=== PATIENT | female | born 1985 | race Caucasian/White ===

== ENCOUNTER 2019-07-17 11:01 | Outpatient (CLI) | payer MEDICAID ==
[~2019-07-17 11:01] MED LIST: ACET-2119 PO; ASPI-1265 PO; CARV3.12 PO; DIPH25CA52 PO; FERR325T32 PO; FLUO20CA39 PO; FURO-150 PO; IBUP-1984 PO; LACT1CAP57 PO; LEVO88TA7 PO; LISI-604 PO; NEOM14.216 TP; OMEP20CA15 PO; SPIR25TA PO; [UNRECOGNIZED DRUG - OTHER] PO
[2019-07-17 11:38] LABS: CLARITY,URINE SLIGHTLY CLOUDY (Clear); COLOR,URINE STRAW (Yellow); GLUCOSE, URINE NEGATIVE (Neg); KETONES,URINE NEGATIVE (Neg); LEUKOCYTE ESTERASE ,URINE NEGATIVE (Neg); NITRITES, URINE NEGATIVE (Neg); OCCULT BLOOD,URINE NEGATIVE (Neg); PROTEIN,URINE NEGATIVE (Neg); UROBILINOGEN,URINE 0.2 E.U/dL (0.2-1.0)
[2019-07-17 11:39] LABS: UA COLLECTION TYPE CLN CATCH MIDSTREAM
[2019-07-17 11:44] LABS: RBC,URINE NONE SEEN /HPF (0-2); SQUAMOUS EPITHELIAL CELL,UR MANY /LPF (FEW); WBC,URINE 0-4 /HPF (0-4)
[2019-07-17 11:45] LABS: BACTERIA,URINE 1+ /HPF (Neg); MUCUS STRANDS NONE SEEN /LPF (Neg)
[2019-07-17 12:17] LABS: BASOPHILS % (AUTO) 0.2 % (0-1); EOSINOPHILS # (AUTO) 0.1 X10'3 (0-0.9); EOSINOPHILS % (AUTO) 1.6 % (0-6); HEMATOCRIT 41.7 % (35.0-45.0); LYMPHOCYTES # (AUTO) 1.4 X10'3 (1.1-4.8); LYMPHOCYTES % (AUTO) 18.7 % (21-51); MEAN CORPUSCULAR HEMOGLOBIN 30.9 PG (27.0-31.0); MEAN CORPUSCULAR HGB CONC 33.5 g/dL (33.0-36.5); MEAN CORPUSCULAR VOLUME 92.2 FL (78-98); MEAN PLATELET VOLUME 8.5 FL (7.4-10.4); MONOCYTES # (AUTO) 0.5 X10'3 (0-0.9); MONOCYTES % (AUTO) 6.1 % (2-12); NEUTROPHILS # (AUTO) 5.6 X10'3 (1.8-7.7); NEUTROPHILS % (AUTO) 73.4 % (42-75); PLATELET COUNT 224 X10'3 (140-440); RED BLOOD COUNT 4.52 X10'6 (4.20-5.60); RED CELL DISTRIBUTION WIDTH 13.5 % (11.5-14.5); WHITE BLOOD COUNT 7.6 X10'3 (4.5-11.0)
[2019-07-17 12:21] LABS: PARTIAL THROMBOPLASTIN TIME 27 SECONDS (22-32)
[2019-07-17 12:24] LABS: ALBUMIN 3.4 G/DL (3.4-5.0); ANION GAP 10 (8-16); BLOOD UREA NITROGEN 16 MG/DL (7-18); BUN/CREATININE RATIO 21.3 (6.6-38.0); CALCIUM 9.2 MG/DL (8.5-10.1); CHLORIDE 104 MMOL/L (99-107); CREATININE 0.75 MG/DL (0.40-0.90); GLUCOSE 57 MG/DL (70-104); POTASSIUM 3.9 MMOL/L (3.5-5.1); SODIUM 143 MMOL/L (135-145); TOTAL CARBON DIOXIDE 28.6 MMOL/L (24-32); eGFR 87 ML/MIN
== END 2019-07-17 23:59 | disposition home or self-care (01) ==
LOC: SSTAY O 11:01 → EDSTATUS 07-20 14:00
PROVIDERS: ATTEND Internal Medicine Interventional Cardiology
DX: I50.22 Chronic systolic (congestive) heart failure (principal); E66.01 Morbid (severe) obesity due to excess calories; G47.10 Hypersomnia, unspecified; I42.9 Cardiomyopathy, unspecified; I42.0 Dilated cardiomyopathy; I27.20 Pulmonary hypertension, unspecified; Z01.810 Encounter for preprocedural cardiovascular examination
CPT/HCPCS: 36415; 80048; 81001; 85025; 85610; 85730

== ENCOUNTER 2021-12-15 12:46 | Day surgery (SDC) | payer MEDICAID ==
[2021-12-09 16:00] LABS: CLARITY,URINE CLEAR (Clear); COLOR,URINE YELLOW (Yellow); GLUCOSE, URINE NEGATIVE (Neg); KETONES,URINE NEGATIVE (Neg); LEUKOCYTE ESTERASE ,URINE NEGATIVE (Neg); NITRITES, URINE NEGATIVE (Neg); OCCULT BLOOD,URINE NEGATIVE (Neg); PH,URINE 5.5 (4.8-8.0); PROTEIN,URINE NEGATIVE (Neg); UROBILINOGEN,URINE 0.2 E.U/dL (0.2-1.0)
[2021-12-09 16:01] LABS: UA COLLECTION TYPE CLN CATCH MIDSTREAM
[2021-12-09 16:07] LABS: BASOPHILS % (AUTO) 0.4 % (0-1); EOSINOPHILS # (AUTO) 0.2 X10'3 (0-0.9); EOSINOPHILS % (AUTO) 2.1 % (0-6); HEMOGLOBIN 11.4 g/dl (12.0-16.0); LYMPHOCYTES # (AUTO) 2.3 X10'3 (1.1-4.8); LYMPHOCYTES % (AUTO) 24.8 % (21-51); MEAN CORPUSCULAR HGB CONC 31.6 g/dL (33.0-36.5); MEAN CORPUSCULAR VOLUME 75.9 FL (78-98); MEAN PLATELET VOLUME 8.9 FL (7.4-10.4); MONOCYTES # (AUTO) 0.7 X10'3 (0-0.9); MONOCYTES % (AUTO) 7.3 % (2-12); NEUTROPHILS # (AUTO) 6.1 X10'3 (1.8-7.7); NEUTROPHILS % (AUTO) 65.4 % (42-75); PLATELET COUNT 258 X10'3 (140-440); RED BLOOD COUNT 4.74 X10'6 (4.20-5.60); WHITE BLOOD COUNT 9.3 X10'3 (4.5-11.0)
[2021-12-09 16:17] LABS: ALBUMIN 3.3 G/DL (3.4-5.0); ANION GAP 7 (8-16); BLOOD UREA NITROGEN 27 MG/DL (7-18); BUN/CREATININE RATIO 29.3 (6.6-38.0); CALCIUM 8.8 MG/DL (8.5-10.1); CHLORIDE 107 MMOL/L (99-107); CREATININE 0.92 MG/DL (0.40-0.90); GLUCOSE 100 MG/DL (70-104); SODIUM 142 MMOL/L (135-145); TOTAL CARBON DIOXIDE 27.9 MMOL/L (24-32); eGFR 68 ML/MIN
[2021-12-09 16:18] LABS: APTT 25 SECONDS (22-32)
[~2021-12-15] VITALS: Ht 147.3 cm; Wt 132.3 kg
[~2021-12-15 12:46] MED LIST changes: -LISI-604 PO; +LISI5TAB22 PO
[2021-12-15 13:05] VITALS: BP 154/103
[2021-12-15] MEDS ORDERED: normal saline 1,000 ML IV SCH (13:10)
[2021-12-15] MEDS ORDERED: SACU1TAB PO (14:08)
[2021-12-15] MEDS ORDERED: OXYGEN NASALCANN (14:08)
[2021-12-15] MEDS ORDERED: midazolam 1 mg/ML 2ml injection ONE ×4 (18:00→19:01)
[2021-12-15] MEDS ORDERED: LIDOcaine 1% W/epiNEPHrine 1:100,000 20ml vial ONE ×2 (18:00)
[2021-12-15] MEDS ORDERED: fentaNYL/PF 50MCG/1 ML 2ML syringe ONE (18:00)
[2021-12-15] MEDS ORDERED: ceFAZolin 2gm in dextrose, iso 50 ML IV ONE (18:21)
[2021-12-15 19:53] VITALS: BP 147/101
[2021-12-15 20:00] VITALS: BP 141/85
[2021-12-15 20:15] VITALS: BP 141/76
[2021-12-15] MEDS ORDERED: HYDROcodone/acetaminophen 5mg/325mg tablet PO PRN (20:25)
[2021-12-15] MEDS ORDERED: HYDROcodone/acetaminophen 10/325mg tab PO PRN (20:25)
[2021-12-15 20:30] VITALS: BP 128/50
[2021-12-16] MEDS ORDERED: ceFAZolin/D5W- 1GM premix 50 ML IV SCH
== END 2021-12-15 20:51 | disposition home or self-care (01) ==
LOC: SSTAY O 12:46
PROVIDERS: ATTEND Student in an Organized Health Care Education/Training Program
DX: T82.120A Displacement of cardiac electrode, initial encounter (principal); I42.0 Dilated cardiomyopathy; I50.22 Chronic systolic (congestive) heart failure; F41.9 Anxiety disorder, unspecified; I27.20 Pulmonary hypertension, unspecified; Q87.19 Other congenital malformation syndromes predominantly associated with short stature; Z95.810 Presence of automatic (implantable) cardiac defibrillator; Y83.8 Other surgical procedures as the cause of abnormal reaction of the patient, or of later complication, without mention of misadventure at the time of the procedure; Y92.89 Other specified places as the place of occurrence of the external cause
CPT/HCPCS: 33215; 36415; 80048; 81003; 85025; 85610; 85730; 93005; J0690; J2250; J3010; J3490; J7030; 99152; 99153; A4565